=== PATIENT | male | born 1955 | race African-American/Black ===

== ENCOUNTER → 2016-09-06 | Outpatient (CLI) | payer BC ==
[~2016-09-06] MED LIST: ACTOS 30 MG TAB30 MG PO; ADULT LOW DOSE81 MG PO; AVAPRO300 MG PO; CIPROFLOXACIN500 M3 OR; HUMALOG100 UNIT/1 SQ; LANTUS SC; ZESTRIL20 MG PO; ZOCOR PO; ZOFRAN ODT4 MG PO
== END ==
LOC: RAD 13:04
DX: R41.82 Altered mental status, unspecified (principal); R53.1 Weakness

== ENCOUNTER 2017-05-22 17:02 | Emergency (ER) | payer BC ==
[~2017-05-22] VITALS: Ht 185.4 cm; Wt 113.4 kg
--- NOTE | ~2017-05-22 | EKG ---
[place] [address] [facility] [place] [address] ELECTROCARDIOGRAM REPORT Name: ADAM SUAREZ Room #: DEP Angel#: [id number] Admission: 05/22/17 Attend Phys: Discharge: 05/22/17 Date of : 57 Report #: [id number] THIS REPORT FOR: //name// [facility] ED Test Date: 2017-05-22 Test Time: 17:44:24 Pat Name: ADAM SUAREZ Department: Room: Gender: Color Developer: MZOOK : 1955 Requested By: Greta Lamar Order Number: [id number] MD: Olivier Jhaveri Measurements Intervals [place] Rate: 85 P: 57 MN: 133 QRS: 13 QRSD: 72 T: 50 QT: 331 QTc: 394 Interpretive Statements Sinus rhythm Probable left atrial enlargement No previous ECG available for comparison Electronically Signed On 05-23-2017 8:47:26 RISK COMPLIANCE MANAGER by Olivier Jhaveri [email or web address] <ELECTRONICALLY SIGNED> By: Olivier Jhaveri MD, [facility] 05/23/17 0847 1744 1744 Olivier Jhaveri MD, FACC /EPI
[2017-05-22 18:04] LABS: HEMATOCRIT 33.1 % (42.0-52.0); HEMOGLOBIN 11.3 gm/dL (14.0-18.0); MCHC 34.1 g/dL (28.0-37.0); MCV 90.9 fL (80.0-100.0); RBC 3.64 mil/uL (4.50-6.00); RDW 16.6 % (10.5-14.5); WBC 8.2 thou/uL (4.0-11.0)
[2017-05-22 18:07] LABS: PLATELET COUNT 132 thou/uL (150-400)
[2017-05-22 18:10] LABS: CALCIUM 9.8 mg/dL (8.5-10.1); CREATININE 12.1 mg/dL (0.7-1.3); POTASSIUM 5.7 mmol/L (3.5-5.1)
[2017-05-22 18:24] LABS: ABSOLUTE NEUTROPHILS 5.6 thou/uL (1.4-8.2)
[2017-05-22 18:26] LABS: LARGE PLATELETS RARE
[2017-05-22] MEDS ORDERED: PROAIR HFA8.5 GM INH (18:36)
== END 2017-05-22 18:56 | disposition home or self-care (01) ==
LOC: ER 17:02
PROVIDERS: Emergency Medicine
DX: J18.9 Pneumonia, unspecified organism (principal); E11.9 Type 2 diabetes mellitus without complications; J45.909 Unspecified asthma, uncomplicated; I10 Essential (primary) hypertension; M10.9 Gout, unspecified; I73.9 Peripheral vascular disease, unspecified; Z79.4 Long term (current) use of insulin

== ENCOUNTER 2018-09-03 13:25 | Inpatient (IN) | payer BC, OTHER ==
[~2018-09-03] VITALS: Ht 180.3 cm; Wt 110.9 kg
--- NOTE | ~2018-09-03 | P ---
[facility] [place] [address] PROCEDURE REPORT Name: ADAM SUAREZ Room #: 464-P [facility].#: [id number] Admission: 09/03/18 ������������������ Attend Phys: Alex Szymanski MD Discharge: 09/06/18 ������������������ Date of : 57 Report #: [id number] THIS REPORT FOR: //name// CC: Eduardo Szymanski Arnoldo Rodriguez DATE OF SERVICE: 09/06/2018 This patient is a patient of Dr. Eduardo Nash and Dr. Alex Szymanski. PROCEDURE: EGD with biopsies. INDICATION FOR PROCEDURE: The patient has supraumbilical abdominal pain, nausea and vomiting of undetermined etiology. DESCRIPTION OF PROCEDURE: Informed consent for this procedure was obtained prior to the administration of any medication. The risks of the procedure, which include bleeding, perforation, infection, complications of sedation and the possibility I could miss something have been explained to the patient and he has indicated his consent by signing. Propofol was slowly titrated before and during this procedure for patient comfort by the Anesthesia Service. The Olympus upper videoscope was introduced through the upper esophageal sphincter and advanced under direct visualization to the third portion of the duodenum. Findings are noted on withdrawal of the scope. The visualized portion of the duodenum, mainly the second portion of the duodenum appeared normal. ��������������������������������������������� ���������������������������������������� By: ��������������������������������������������� 1311 57 Nneka Escamilla DO /nt
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
--- NOTE | ~2018-09-03 | P ---
[facility] [place] [address] PROCEDURE REPORT Name: ERICKADAM Iva Room #: 464-P [facility] IN ..#: [id number] Admission: 09/03/18 ������������������ Attend Phys: Alex Szymanski MD Discharge: 09/06/18 ������������������ Date of : 57 Report #: [id number] THIS REPORT FOR: //name// CC: Eduardo Nash DO Alex Rodriguez DATE OF SERVICE: 09/06/[address] Eduardo Nash and Dr. Alex Szymanski. PROCEDURE: EGD with biopsy. INDICATION FOR PROCEDURE: Evaluate supraumbilical abdominal pain, nausea and vomiting. The patient is a diabetic with dialysis. He had a negative gastric emptying study or a normal gastric emptying study. DESCRIPTION OF PROCEDURE: Informed consent for this procedure was obtained prior to the administration of any medication. The risks of the procedure, which include bleeding, perforation, infection, complications of sedation and the possibility I could miss something have been explained to the patient and he has indicated his consent by signing. Propofol was slowly titrated before and during this procedure for patient comfort by the Anesthesia Service. The Olympus upper videoscope was introduced through the upper esophageal sphincter and advanced under direct visualization to the third portion of the duodenum. Findings are noted on withdrawal of the scope. The visualized portion of the second portion of the duodenum appears absolutely normal and there is bile present. The duodenal bulb was mildly erythematous consistent with duodenitis. Pylorus, erythematous mucosa. Antrum, erythematous mucosa, nodular mucosa. I did biopsy the antrum x 2 for histopathology to evaluate mainly for Helicobacter pylori infection or any other abnormalities seen. Body, normal mucosa. Cardia and fundus, normal mucosa. Retroflex view did not reveal any hiatal hernia. The scope was withdrawn into the esophagus. The Z-line is appropriately located at the top of the gastric folds and appears normal. The esophageal mucosa appears normal throughout its entirety. The scope was advanced then into the stomach again. Biopsies were obtained x 2 from the nodular antrum for histopathology. Good hemostasis was noted after those biopsies. The scope was then withdrawn. The patient went to the recovery area in stable condition. He tolerated the procedure fairly well. IMPRESSION: [facility] [address] [place] [address] PROCEDURE REPORT Name: ADAM SUAREZ Room #: 464-P [facility] IN [facility].#: [id number] Admission: 09/03/18 ������������������ Attend Phys: Alex Szymanski MD Discharge: 09/06/18 ������������������ Date of : 57 Report #: [id number] 1. Normal esophagus. 2. Nodular distal gastritis, biopsies pending. 3. Mild erythema of the duodenal bulb with a normal second portion of the duodenum. RECOMMENDATIONS: My recommendations are to await the biopsy results. We will start him on proton pump inhibitors. He will be on a soft diet. He should have an outpatient colonoscopy for colon polyp follow up in the near future as it has been about 5 years since his last colonoscopy. Thank you very much once again for allowing me to participate in his care. ��������������������������������������������� ���������������������������������������� By: ��������������������������������������������� 1315 05 Nneka Escamilla DO /nt
[2018-09-03 13:25] VITALS: BP 169/68
[~2018-09-03 13:25] MED LIST changes: +PROAIR HFA8.5 GM INH
[2018-09-03 14:16] LABS: ABSOLUTE NEUTROPHILS 6.8 thou/uL (1.4-8.2); BASOPHILS 0.5 % (0.0-2.0); EOSINOPHILS 0.8 % (0.0-3.0); HEMATOCRIT 35.2 % (42.0-52.0); HEMOGLOBIN 11.8 gm/dL (14.0-18.0); LYMPHOCYTES 6.6 % (24.0-44.0); MCH 30.5 pg (26.0-34.0); MCHC 33.6 g/dL (28.0-37.0); MCV 90.8 fL (80.0-100.0); MONOCYTES 9.1 % (1.0-8.0); RBC 3.87 mil/uL (4.50-6.00); RDW 15.9 % (10.5-14.5); WBC 8.8 thou/uL (4.0-11.0)
[2018-09-03 14:39] LABS: PLATELET COUNT 177 thou/uL (150-400); PLATELET ESTIMATE NORMAL
[2018-09-03 15:00] LABS: ALBUMIN 3.8 g/dL (3.4-5.0); CALCIUM 8.4 mg/dL (8.5-10.1); CREATININE 11.3 mg/dL (0.7-1.3); TOTAL BILIRUBIN 0.5 mg/dL (<0.1-1.0); TOTAL PROTEIN 7.5 g/dL (6.4-8.2)
[2018-09-03 15:03] LABS: POTASSIUM 6.8 mmol/L (3.5-5.1)
[2018-09-03 15:26] LABS: URINE BILIRUBIN NEGATIVE (Negative); URINE BLOOD 2+ (Negative); URINE CLARITY CLEAR; URINE COLOR YELLOW; URINE GLUCOSE-RANDOM* NEGATIVE (Negative); URINE KETONES NEGATIVE (Negative); URINE LEUKOCYTES-REFLEX NEGATIVE (Negative); URINE NITRITE-REFLEX NEGATIVE (Negative); URINE PROTEIN (DIPSTICK) 3+ (Negative); URINE SPECIFIC GRAVITY 1.015 (1.005-1.035); URINE UROBILINOGEN 0.2 E.U./dl (0.2-1.0)
[2018-09-03 15:41] LABS: BACTERIA-REFLEX 1-9 Few /HPF (None Seen); CASTS None Seen /LPF (None Seen); CRYSTALS None Seen /LPF (None Seen); SQUAMOUS None Seen /LPF (0-3); URINE WBC-REFLEX 0-5 Rare /HPF (0-5)
--- NOTE | 2018-09-03 16:50 | EKG ---
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: : 1955 Requested By: Mary Rendon Order Number: [id number] MD: Olivier Jhaveri Measurements Intervals [place] Rate: 89 P: 59 GA: 141 QRS: 15 QRSD: 76 T: 48 QT: 343 QTc: 418 Interpretive Statements Sinus rhythm Normal tracing Compared to ECG 05/22/2017 17:44:24 No significant changes Electronically Signed On 09-03-2018 16:50:16 CDT by Olivier Jhaveri [email or web address] ��������������������������������������������� <ELECTRONICALLY SIGNED> ���������������������������������������� By: Olivier Jhaveri MD, [facility] ��������������������������������������������� 09/03/18 1650 1519 1519 Olivier Jhaveri MD, FACC /EPI
[2018-09-03 17:52] VITALS: BP 174/75
[2018-09-03 18:11] VITALS: BP 167/77
[2018-09-04 04:09] VITALS: BP 132/71
[2018-09-04 05:17] LABS: ALBUMIN 3.4 g/dL (3.4-5.0); CALCIUM 8.5 mg/dL (8.5-10.1); PHOSPHORUS 4.1 mg/dL (2.5-4.9)
[2018-09-04 05:19] LABS: POTASSIUM 4.9 mmol/L (3.5-5.1)
--- NOTE | 2018-09-04 05:21 | NUR ---
ADMITTED FROM ER [facility]. PT WAS ALREADY ON UNIT WHEN SHIFT WAS STARTED. PER DAY RN, PT HAS JUST CAME UP FROM ER. 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 ADMIITED WITH CRF AND MISSED H. URGENT DIALYSIS WAS SCHEDULED PER DR.NEUFIELD NEPHLATESHA. FAMILY AT BEDSIDE UPON ADMISSIOM. QUINTEN HD ACCESS. POSITIVE FOR BRUIT AND THRILL. LIMB ALERT APPLIED. BLE SCABS FROM UNKNOWN ULCERS. NONE OPEN AT THIS TIME. WOUND CARE CONSULTED PER BARBARA COKER. AXOX4. HD COMPLETED AND VSS. C/O BLE PAIN TREATED WITH NORCO. BS MONITORING STABLE. NO S/S ACUTE DISTRESS NOTED OR REPORTED AT THIS TIME. WILL CONT TO MONITOR FOR ANY CHANGES IN CONDITION.
[2018-09-04 07:24] VITALS: BP 147/57
[2018-09-04 08:21] LABS: DIRECT BILIRUBIN 0.1 mg/dL (<0.1-0.3); TOTAL BILIRUBIN 0.5 mg/dL (<0.1-1.0); TOTAL PROTEIN 6.7 g/dL (6.4-8.2)
[2018-09-04 09:37] LABS: CALCIUM 8.5 mg/dL (8.5-10.1); PHOSPHORUS 4.1 mg/dL (2.6-4.7)
--- NOTE | 2018-09-04 09:43 | NUR ---
WOUND CONSULT: PT. WAS SEEN TDOAY BY DR. BAPTISTE AND MYSELF. PT. HAS ULCERATIONS TO HIS BLE OF UNKNOWN ETIOLOGY AT THIS TIME. PT. REPORTS THAT THEY ARE NOT PAINFUL AT THIS TIME AND HAVE BEEN PRESENT FOR APPROX. 6 MONTHS. RECOMMENDATIONS: LOTION TO BLE, DAILY. PT. AND STAFF NURSE WERE INSTRUCTED ON PLAN OF CARE.
--- NOTE | 2018-09-04 09:50 | NUR ---
Nutrition: Pt admitted with N/V/Weakness. Ulcerated wounds to right leg. Hx of ESRD, DM. States N/V sx started yesterday. Appetite was good before and is okay this morning. Was getting ready to eat breakfast during assessment. States he ate turkey sandwhich and chips last night for dinner. Current wt 254 lbs, UBW 265 lbs. May 2017 wt 250 lbs. Reports no known wt loss. On hemodialysis, could be fluid related. Follows diabetic diet at home. No A1c to assess, BG 117. Explained menu ordering and encouraged protein foods. Low nutrition risk.
[2018-09-04 13:07] LABS: HEP B SURFACE Ab(ANTI-HBS Reactive (()); HEPATITIS B SURFACE AG Negative (Negative)
--- NOTE | 2018-09-04 14:48 | NUR ---
PT ADMITTED RELATED TO HYPERKALEMIA, PAIN IN BILATERAL LOWER EXTREMITIES. CM REVIEWED CHART AND SPOKE WITH CARE TEAM. CM MET WITH PT AND SPOUSE AT BEDSIDE THIS DAY. PT IS A&O X4. CM ROLE INTRODUCED. PT INDICATED THATHE LIVES IN A HOUSE WITH HIS SPOUSE WITH 5 STEPS TO ENTER AND 14 STEPS INSIDE. 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 PT INDICATED NO HH OR OP HISTORY. PT INDICATED HE HAS DIALYSIS AT [facility]. PT INDICATED HE PLANS TO RETURN HOME ONCE MEDICALLY STABLE. CM TO FOLLOW INDICATED WITH DC PLANNING.
[2018-09-04 15:45] VITALS: BP 151/71
--- NOTE | 2018-09-04 17:06 | NUR ---
ASSUMED CARE OF PT AT 0700. ASSESSMENT COMPLETED. A&O,X4. UNSTEADY ON FEET, FALL PRECAUTIONS IN PLACE. ROOM AIR. PT WENT FOR US TODAY, NO PROBLEMS NOTED. PLAN FOR GASTRIC EMPTYING TOMORROW DUE TO PT EATING BREAKFAST THIS AM. ACHS, INSULIN GIVEN PER SLIDING SCALE. PT IN STABLE CONDITION.
[2018-09-04 20:27] VITALS: BP 144/61
[2018-09-05 04:00] VITALS: BP 158/68
--- NOTE | 2018-09-05 04:16 | NUR ---
ASSUMED CARE AROUND 1900. AXOX4. KEPT NPO FOR GASTRIC EMPTYING STUDY IN AM. NO S/S ACUTE DISTRESS NOTED OR REPORTED AT THIS TIME. WILL CONT TO MONITOR FOR ANY CHANGES IN CONDITION.
[2018-09-05 05:47] LABS: ALBUMIN 3.2 g/dL (3.4-5.0); CALCIUM 8.7 mg/dL (8.5-10.1); PHOSPHORUS 4.5 mg/dL (2.5-4.9); POTASSIUM 5.8 mmol/L (3.5-5.1)
[2018-09-05 05:51] LABS: CREATININE 10.6 mg/dL (0.7-1.3)
[2018-09-05 07:31] VITALS: BP 165/76
[2018-09-05 12:14] VITALS: BP 148/76
[2018-09-05 15:43] VITALS: BP 173/82
--- NOTE | 2018-09-05 16:06 | NUR ---
IT IS ANTICPATED THAT PT WILL LIKELY BE MEDICALLY STABLE TO DISCHARGE HOME AFTER DIALYSIS THIS AFTERNOON. UPDATED FLOW SHEETS TO BE FAXED TO [facility]. NO OTHER CM INTERVENTION INDICATED AT THIS TIME. CASE CLOSED.
[2018-09-05 19:22] VITALS: BP 105/61
--- NOTE | 2018-09-05 20:02 | NUR ---
Assumed pt care this am, pt was down having his gastric emptying study done. Pt returned early in the afternoon, dialysis started in his room. Pt stable during the shift. Consent for EGD obtained for joanie am, advised pt to be NPO post midnight tonight. POC followed for issues or concerns verbalized by the pt.
--- NOTE | 2018-09-06 02:38 | NUR ---
ASSUMED CARE AROUND 1900. AXOX4. NO S/S ACUTE DISTRESS NOTED OR REPORTED AT THIS TIME. KEPT NPO FOR GI PROCEDURES IN AM. WILL CONT TO MONITOR ANY CHANGES IN CONDITION.
[2018-09-06 05:37] VITALS: BP 143/72
[2018-09-06 05:56] LABS: ALBUMIN 3.1 g/dL (3.4-5.0); DIRECT BILIRUBIN < 0.1 mg/dL (<0.1-0.3); SGPT 19 U/L (30-65); TOTAL BILIRUBIN 0.4 mg/dL (<0.1-1.0); TOTAL PROTEIN 7.2 g/dL (6.4-8.2)
[2018-09-06 05:59] LABS: SGOT 48 U/L (15-37)
[2018-09-06 08:12] VITALS: BP 178/84
--- NOTE | 2018-09-06 10:33 | NUR ---
PT A&OX4, IV INTACT IN L AC. FISTULA IN R UA. AMBULATES WITH STAND BY ASSIST. ANURIC. PT NPO SINCE MN FOR EGD THEN POSSIBLE DC TODAY. BP ELEVATED 178/84 LISINOPRIL GIVEN WITH A SIP OF WATER. DENIES ANY PAIN AT THIS TIME. WILL CONT POC.
--- NOTE | 2018-09-06 15:18 | EKG ---
[address] [address] ELECTROCARDIOGRAM REPORT Name: ADAM SUAREZ Room #: 464-P ADM IN M.R.#: [id number] ������������������ Admission: 09/03/18 ������������������ Attend Phys: Alex Szymanski MD Discharge: ������������������ Date of : 57 Report #: [id number] ����������������������������������������������������������������� [id number] THIS REPORT FOR: //name// [facility] Test Date: 2018-09-06 Test Time: 12:52:06 Pat Name: ADAM SUAREZ Department: Room: 464 P Gender: M Filler Room Attendant: ROMINA : 1955 Requested By: Rae Dickerson Order Number: [id number] MD: Murray Santiago Measurements Intervals [place] Rate: 78 P: 33 WI: 144 QRS: 0 QRSD: 76 T: 26 QT: 398 QTc: 454 Interpretive Statements Sinus rhythm Supraventricular bigeminy Probable left atrial enlargement Compared to ECG 09/03/2018 15:19:53 Atrial premature complex(es) now present Electronically Signed On 09-06-2018 15:18:34 CDT by Murray Santiago [email or web address] ��������������������������������������������� <ELECTRONICALLY SIGNED> ���������������������������������������� By: Murray Santiago MD ��������������������������������������������� 09/06/18 1518 1252 1252 Murray Santiago MD /EPI
[2018-09-06 15:45] VITALS: BP 154/72
[2018-09-06] MEDS ORDERED: PANTOPRAZOLE SO40 M1 PO (15:46)
[2018-09-06] MEDS ORDERED: RENVELA800 MG PO (15:46)
[2018-09-06 16:41] VITALS: BP 154/72
--- NOTE | 2018-09-06 18:15 | NUR ---
DC ORDERS RECEIVED. IV REMOVED FROM L AC. DC INSTRUCTIONS, F/U APPOINTMEMTS ANS SCRIPTS REVIEWED WITH PT. PT TRANSFERED BY W/C TO FRONT ENTRANCE.
--- NOTE | 2018-09-07 17:06 | PATH ---
[facility] [place] [address] PATHOLOGY RPT PROCEDURE Name: SAMIR HOFFMAN Room #: 464-P DIS IN M.R.#: [id number] ������������������ Admission: 09/03/18 ������������������ Date of : 57 Discharge: 09/06/18 Report #: [id number] Path Case #: [id number] [facility] Accession Number: [id number] . 01 Material submitted: . stomach - GASTRIC BX R/O H-PYLORI . 01 Clinical history: . Pre-OP DX: Epigastric pain Post-OP DX: Gastritis . 02 Diagnosis: Gastric mucosa, gastric rule out H. pylori, endoscopic biopsy: - Mild reactive gastropathy. - Negative for intestinal metaplasia or atrophy. - Negative for Helicobacter pylori (properly controlled immunohistochemical stain performed). (IUV/db; 09/07/2018) LBQ/09/07/2018 . 02 Electronically signed: . Wendie Sunshine MD, Pathologist NPI- [id number] . 01 Gross description: . Received in formalin labeled "Samir Hoffman, gastric BX, rule out H. pylori," are 3 segments of pride soft tissue measuring 0.9 x 0.7 x 0.2 cm in aggregate dimensions and ranging from 0.3 to 0.6 cm in maximum dimension. The specimen is submitted entirely in cassette A1. (TSD; 09/06/2018) TOB/TOB . 02 Pathologist provided ICD-10: K31.9 . 02 CPT . 107671, N69829 Specimen Comment: A courtesy copy of this report has been sent to Specimen Comment: [phone], , . Specimen Comment: Report sent to MALU King / CAPO Performed at: [address] [id number] MD Benton Ayoub MD Phone: [phone] Performed at: [address] [id number] [address] [address] PATHOLOGY RPT PROCEDURE Name: SAMIR HOFFMAN Room #: 464-P DIS IN M.R.#: [id number] ������������������ Admission: 09/03/18 ������������������ Date of : 57 Discharge: 09/06/18 Report #: [id number] Path Case #: [id number] MD Wendie Sunshine MD Phone: [phone]
== END 2018-09-06 18:34 | disposition home or self-care (01) | DRG 391 ==
LOC: ER 13:25 → EROBS 17:50 → 4W 17:50
PROVIDERS: Emergency Medicine Emergency Medical Services; Internal Medicine Nephrology; Nurse Practitioner; Physician Assistant; ADMIT Hospitalist
PROC: 5A1D70Z Performance of Urinary Filtration, Intermittent, Less than 6 Hours Per Day (ICD-10-PCS; principal; 2018-09-03)
PROC: 5A1D70Z Performance of Urinary Filtration, Intermittent, Less than 6 Hours Per Day (ICD-10-PCS; 2018-09-05)
PROC: 0DB68ZX Excision of Stomach, Via Natural or Artificial Opening Endoscopic, Diagnostic (ICD-10-PCS; 2018-09-06)
DX: K29.70 Gastritis, unspecified, without bleeding (principal); N18.6 End stage renal disease; I12.0 Hypertensive chronic kidney disease with stage 5 chronic kidney disease or end stage renal disease; L97.919 Non-pressure chronic ulcer of unspecified part of right lower leg with unspecified severity; E87.5 Hyperkalemia; E11.22 Type 2 diabetes mellitus with diabetic chronic kidney disease; E11.51 Type 2 diabetes mellitus with diabetic peripheral angiopathy without gangrene; J45.909 Unspecified asthma, uncomplicated; E11.65 Type 2 diabetes mellitus with hyperglycemia; R68.81 Early satiety; K29.80 Duodenitis without bleeding; M10.9 Gout, unspecified; Z90.49 Acquired absence of other specified parts of digestive tract; Z86.73 Personal history of transient ischemic attack (TIA), and cerebral infarction without residual deficits; Z82.49 Family history of ischemic heart disease and other diseases of the circulatory system; Z83.3 Family history of diabetes mellitus; Z86.010 Personal history of colon polyps; Z79.899 Other long term (current) drug therapy
CPT/HCPCS: 10045; 32100; 62110; 62900; 70005

== ENCOUNTER → 2019-02-14 | Outpatient (CLI) | payer OTHER, BC ==
[~2019-02-14] MED LIST changes: +PANTOPRAZOLE SO40 M1 PO; +RENVELA800 MG PO
== END ==
LOC: MRI 08:48
DX: M47.816 Spondylosis without myelopathy or radiculopathy, lumbar region (principal); M51.26 Other intervertebral disc displacement, lumbar region; M51.27 Other intervertebral disc displacement, lumbosacral region

== ENCOUNTER → 2019-11-25 | Outpatient (CLI) | payer OTHER, BC ==
[~2019-11-25] VITALS: Ht 182.9 cm; Wt 115.7 kg
[~2019-11-25] MED LIST changes: +B COMPLEX1 EACH PO; +CLARITIN10 M3 PO; +COZAAR 25 MG TA25 M1 PO; +LYRICA200 MG PO; +RENO CAPS SOFTGE1 MG PO; +SENSIPAR60 MG PO; +TRESIBA FL200 UNIT/1 SUBQ
[2019-11-25 07:59] LABS: HEMOGLOBIN 11.2 gm/dL (14.0-18.0); MCH 31.2 pg (26.0-34.0); MCHC 35.1 g/dL (28.0-37.0); MCV 88.7 fL (80.0-100.0); RBC 3.6 mil/uL (4.50-6.00); RDW 15.7 % (10.5-14.5); WBC 5.4 thou/uL (4.0-11.0)
[2019-11-25 08:07] LABS: CALCIUM 9.7 mg/dL (8.5-10.1); CREATININE 12.7 mg/dL (0.7-1.3); POTASSIUM 5.2 mmol/L (3.5-5.1)
--- NOTE | 2019-11-26 13:08 | PATH ---
[facility] [address] [place] [address] PATHOLOGY RPT PROCEDURE Name: SAMIR SUAREZ Room #: REG [facility].#: [id number] Admission: 11/25/19 Date of : 57 Discharge: Report #: [id number] Path Case #: [id number] [facility] Accession Number: [id number] . 01 Material submitted: . hepatic flexure - POLYP AT HEPATIC FLEXURE . 01 Clinical history: . Hx of polyps . 02 Diagnosis: Polyp, at hepatic flexure, endoscopic biopsy: - Minute tubular adenoma (crypt adenoma). - Negative for high-grade dysplasia. (IUV:pit 11/26/2019) QTP 11/26/2019 1100 Local . 02 Electronically signed: . Wendie Sunshine MD, Pathologist NPI- [id number] . 01 Gross description: . The specimen is received in formalin, labeled "Dalton, Samir, polyp at hepatic flexure" and consists of a fragment of pink-pride tissue measuring 0.3 x 0.3 cm which is entirely submitted in A1. (SDY; 11/25/2019) SYU/SYU 11/25/2019 1340 Local . 02 Pathologist provided ICD-10: D12.3 . 02 CPT . 592123 Specimen Comment: A courtesy copy of this report has been sent to [phone] Specimen Comment: Report sent to Performed at: 01 [facility] [address] [place] [address] [address] [place] [id number] MD Benton Ayoub MD Phone: [phone] Performed at: [address] [id number] MD Wendie Sunshine MD Phone: [phone]
--- NOTE | 2019-11-26 20:22 | P ---
[facility] [address]on [place] [address] PROCEDURE REPORT Name: ADAM SUAREZ Room #: REG [facility]#: [id number] Admission: 11/25/19 Attend Phys: Maycol Ochoa MD Discharge: Date of : 57 Report #: [id number] THIS REPORT FOR: cc: Eduardo Nash James A. DO Thesing, John A. MD ~ CC: Eduardo Berg DATE OF SERVICE: 11/25/2019 OUTPATIENT COLONOSCOPY REPORT BRIEF HISTORY: The patient is a 64-year-old male with a history of an advanced adenoma with a flat polyp in the ascending colon for surveillance colonoscopy. PREOPERATIVE DIAGNOSIS: History of colon polyp. POSTOPERATIVE DIAGNOSES: 1. Diminutive polyp, hepatic flexure. 2. Mild diverticulosis coli. MEDICATIONS: Deep sedation with propofol per anesthesia. SPECIMEN: Polyp from hepatic flexure. ESTIMATED BLOOD LOSS: 3 mL. PROCEDURE: Colonoscopy to cecum and ileocecal valve with biopsy. FINDINGS: Prior to propofol sedation, procedure of colonoscopy discussed with the patient as well as potential risks and its complications. He indicates he understands and desires to proceed. DESCRIPTION OF PROCEDURE: With the patient in left lateral decubitus position, digital examination was completed, which revealed no abnormalities. Subsequently, the Olympus video colonoscope was introduced into the rectum, advanced under direct vision to the cecum. Done with minimal difficulty. The cecum was identified by the ileocecal valve and appendiceal orifice. Multiple attempts were made to cross the ileocecal valve. I could see the mouth of the ileocecal valve, but due to angulation, we were unable to cross the ileocecal valve. The mouth of the ileocecal valve was unremarkable. At that point, the scope was slowly withdrawn and careful circumferential views were obtained. Within the proximal ascending colon, 2 tattoo chacko were seen. The mucosa in [facility] [address] [place] [address] PROCEDURE REPORT Name: ADAM SUAREZ Room #: REG [facility]#: [id number] Admission: 11/25/19 Attend Phys: Maycol Ochoa MD Discharge: Date of : 57 Report #: [id number] that area was carefully examined. There was no evidence of residual polyps or neoplastic lesions in that area. The scope was further withdrawn, no additional abnormalities were noted until the hepatic flexure was reached, at which point a diminutive polyp was seen and removed with biopsy forceps. Scope was further withdrawn and no additional neoplastic lesions were seen on this examination. In the sigmoid colon, occasional small diverticulum was seen. There was no endoscopic evidence of diverticulitis. Scope was withdrawn in the rectum. Upon retroflexion, no abnormalities were seen. Scope was withdrawn. The patient tolerated the procedure well. CONDITION OF THE PATIENT UPON DISCHARGE: Following procedure, the patient drowsy, aroused, conversant and will be discharged home when fully ambulatory. INSTRUCTIONS TO THE PATIENT AND FAMILY AT THE TIME OF DISCHARGE: One diminutive polyp identified and removed as described. We will follow up on the pathology. However, in view of the fact he had an advanced adenoma, suggest colonoscopy in 5 years. He will return to the care of Dr. Eduardo Nash and return to see us as needed. <ELECTRONICALLY SIGNED> By: Maycol Ochoa MD 11/26/192021 1000 1102 Maycol Ochoa MD /nt
== END | disposition home or self-care (01) ==
LOC: GI 06:51
PROVIDERS: Student in an Organized Health Care Education/Training Program; ATTEND Specialist
DX: Z12.11 Encounter for screening for malignant neoplasm of colon (principal); Z86.010 Personal history of colon polyps; D12.3 Benign neoplasm of transverse colon; K57.30 Diverticulosis of large intestine without perforation or abscess without bleeding; I12.0 Hypertensive chronic kidney disease with stage 5 chronic kidney disease or end stage renal disease; E11.22 Type 2 diabetes mellitus with diabetic chronic kidney disease; N18.6 End stage renal disease; J45.909 Unspecified asthma, uncomplicated; I73.9 Peripheral vascular disease, unspecified; Z90.49 Acquired absence of other specified parts of digestive tract; Z98.890 Other specified postprocedural states; Z79.899 Other long term (current) drug therapy; Z11.59 Encounter for screening for other viral diseases; Z79.82 Long term (current) use of aspirin
CPT/HCPCS: 62110; 62900